=== PATIENT | male | born 1960 | race Caucasian/White ===

== ENCOUNTER 2021-05-20 07:20 | Emergency (ER) | payer BC ==
[~2021-05-20] VITALS: Ht 180.3 cm; Wt 104.3 kg
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
[2021-05-20] MEDS ORDERED: LIDOCAINE HCL/MPF 1% 30 ML VIAL IJ ONE (08:14)
[2021-05-20] MEDS ORDERED: LIDOCAINE HCL/PF 1% 30 ML VIAL IM ONE (08:30)
[2021-05-20 09:22] VITALS: BP 133/87
--- NOTE | 2021-05-20 09:22 | NUR ---
Patient discharged to home in stable condition. Written and verbal after care instructions given. Patient verbalizes understanding of instruction.
== END 2021-05-20 09:22 | disposition home or self-care (01) ==
LOC: ER 07:25
DX: S81.811A Laceration without foreign body, right lower leg, initial encounter (principal); S50.811A Abrasion of right forearm, initial encounter; V49.49XA Driver injured in collision with other motor vehicles in traffic accident, initial encounter; Y93.89 Activity, other specified; Y92.413 State road as the place of occurrence of the external cause; Y99.8 Other external cause status
CPT/HCPCS: 12002; 99283; A6403 ×2; J3490